=== PATIENT | female | born 1935 | race Caucasian/White ===

== ENCOUNTER 2018-02-23 20:35 | Inpatient (IN) | payer MEDICARE, BC ==
[2018-02-23 21:36] LABS: #Basophils 0.1 thou/uL (0.0-0.2); #Eosinphils 0.1 thou/uL (0.0-0.7); #Lymphocytes 1.3 thou/uL (1.20-3.40); #Monocytes 0.9 thou/uL (0.11-0.59); #Neutrophils 7.1 thou/uL (1.40-6.50); %Eosinophils 0.9 % (0.0-10.0); %Lymphocytes 13.5 % (21.0-51.0); %Monocytes 9.9 % (0.0-10.0); %Neutrophils 74.7 % (42.0-75.0); Hemoglobin 13.2 g/dL (12.0-16.0); Mean Corpuscular HGB CONC 32.6 g/dL (32.0-36.0); Mean Corpuscular Hemoglobin 28.4 pg (27.0-31.0); Mean Corpuscular Volume 87.3 fL (78.0-98.0); Mean Platelet Volume 9.8 fL (7.4-10.4); Platelet Count 168 thou/uL (130-400); RBC Distribution Width 13.4 % (11.5-14.5); Red Blood Cell (RBC) Count 4.66 mill/uL (4.20-5.40); White Blood Cell (WBC) Count 9.5 thou/uL (4.8-10.8)
[2018-02-23 21:51] LABS: ALT (SGPT) 17 U/L (8-55); AST (SGOT) 20 U/L (5-34); Albumin 4.3 g/dL (3.4-4.8); Alkaline Phosphatase 101 U/L (40-150); Anion Gap 14 mmol/L (10-20); BUN (Urea Nitrogen) 13 mg/dL (9.8-20.1); Bilirubin, Total 0.5 mg/dL (0.2-1.2); CK (CPK) 88 U/L (29-168); Calc. Creatinine Clearance 0 mL/min (70-130); Calcium 10.1 mg/dL (7.8-10.44); Carbon Dioxide 29 mmol/L (23-31); Chloride 97 mmol/L (98-107); Estimated GFR-MDRD 73; Globulin 2.9 g/dL (2.4-3.5); Glucose 111 mg/dL (83-110); Potassium 3.9 mmol/L (3.5-5.1); Protein, Total 7.2 g/dL (6.0-8.3); Sodium 136 mmol/L (136-145)
[2018-02-23 21:54] LABS: CKMB 1.5 ng/mL (0-6.6); Troponin I 0.017 ng/mL (< 0.028)
[2018-02-23] MEDS ORDERED: methylPREDNISolone Sod Succ/PF 125 MG/2 ML VIAL ONE (22:37)
[2018-02-23] MEDS ORDERED: cefTRIAXone\\ROCEPHIN 1 GM VIAL ONE (22:37)
[2018-02-24] MEDS ORDERED: Ondansetron ODT 4 MG TAB SL PRN (00:27)
[2018-02-24] MEDS ORDERED: Acetaminophen 325 MG TAB PO PRN ×2 (00:27→00:28)
[2018-02-24] MEDS ORDERED: Ondansetron PF 4 MG/2 ML Vial IVP PRN ×2 (00:27→11:19)
[2018-02-24 01:00] VITALS: BMI 34.4
[2018-02-24] MEDS ORDERED: Azithromycin 500 MG in Sodium Chloride 0.9% 250 ML 250 ML IVPB SCH (03:30)
[2018-02-24] MEDS: Benzonatate 100 MG CAP PO PRN ×2 (04:43→09:07)
[2018-02-24] MEDS ORDERED: Calcium Carbonate 500 MG ChewTAB PO PRN (11:19)
[2018-02-24] MEDS ORDERED: Senokot S 8.6-50 MG TAB PO PRN (11:19)
[2018-02-24] MEDS ORDERED: Ondansetron ODT 4 MG TAB PO PRN (11:19)
[2018-02-24] MEDS ORDERED: Benzonatate 100 MG CAP PO PRN (11:22)
--- NOTE | 2018-02-24 11:44 | HP ---
DATE OF ADMISSION: 02/24/2018 PRIMARY CARE PHYSICIAN: Dr. Douglas Strong. PRIMARY COCOA PRESS OPERATOR: Dr. Villalba. CHIEF COMPLAINT: Shortness of breath and fever. The patient was transferred from Urgent care to the Emergency Room. HISTORY OF PRESENT ILLNESS: Patient is an 82-year-old female with congestive heart failure, hyperten moises and atrial fibrillation who presented to the emergency room with shortness of breath and fever. She was seen at the Urgent Care earlier today and was found to have low oxygen saturation in high 80 s. The influenza was ruled out at the clinic per patient report. Patient has been having shortness of breath along with wheezing as well as low grade fever over the last 2-3 days. She denies any sick contacts. She felt generally weak and fatigued. No significant orthopnea or paroxysmal nocturnal d yspnea or worsening leg swelling reported. She denies any recent travel. She had pneumonia last yea r where she was admitted at [facility]. In the emergency room, she received Rocephin, Solu-Medrol and DuoNebs. Shortness of breath somewhat improved with the above treatment. Patient's oxygen saturation dropped up to 88% while in the emergency room that improved with O2 suppl ementation. She is currently on 2 liters nasal cannula. PAST MEDICAL HISTORY: 1. Chronic atrial fibrillation. 2. Chronic systolic heart failure, followed by Dr. Villalba. 3. Hypertension. 4. Hyperlipidemia. 5. Coronary artery disease, status post stent placement in 2005. 6. History of pneumonia in the past. 7. History of squamous cell carcinoma of the skin. 9. Hypothyroidism. PAST SURGICAL HISTORY: 1. Coronary artery disease. 2. Left leg surgery. 3. Total abdominal hysterectomy. 4. Bladder sling. ALLERGIES: 1. Patient is allergic to LISINOPRIL that causes cough. 2. HYDROCODONE. SOCIAL HISTORY: Patient currently lives at home with her family. She denies any smoking. She makes her own decision with the help of her family. She is FULL CODE. REVIEW OF SYSTEMS: The following complete review of systems was negative, unless otherwise mentioned in the HPI or below: Constitutional: Weight loss or gain, ability to conduct usual activities. Sk in: Rash, itching. Eyes: Double vision, pain. ENT/Mouth: Nose bleeding, neck stiffness, pain, te nderness. Cardiovascular: Palpitations, dyspnea on exertion, orthopnea. Respiratory: Shortness of breath, wheezing, cough, hemoptysis, fever or night sweats. Gastrointestinal: Poor appetite, abdom inal pain, heartburn, nausea, vomiting, constipation, or diarrhea. Genitourinary: Urgency, frequenc y, dysuria, nocturia. Musculoskeletal: Pain, swelling. Neurologic/Psychiatric: Anxiety, depressio n. Allergy/Immunologic: Skin rash, bleeding tendency. FAMILY HISTORY: Positive for hypertension and heart disease. CURRENT HOME MEDICATIONS: Aspirin 81 mg daily, digoxin 125 mcg daily, Cardizem extended release 120 mg daily, Vytorin 10/40 daily, ferrous sulfate 325 mg daily, Lasix 80 mg daily, levothyroxine 88 mcg daily, Xarelto 20 mg daily, Aldactone 50 mg daily, metoprolol succinate 25 mg daily. PHYSICAL EXAMINATION: VITAL SIGNS: In the emergency room showed temperature 99, respirations 22, pulse rate of 78, O2 satu ration of 92%, blood pressure was 135/80. GENERAL: An 82-year-old female in minimal respiratory distress. Intermittent coughing noted. HEENT: Head atraumatic, normocephalic. Sclerae are anicteric. Moist mucous membranes. No signific ant oral lesion appreciated. NECK: Supple, no JVD, no carotid bruit. LUNGS: Showed bibasilar rales with scattered rhonchi and wheezing mainly at left base. HEART: S1, S2 present. Irregularly irregular, 2/6 systolic murmur over the mitral area. ABDOMEN: Soft, nontender, bowel sounds present. EXTREMITIES: No calf tenderness. There is 1+ to 2+ edema which is chronic per patient report. SKIN: Warm and dry. LYMPH NODES: No palpable lymph nodes in the neck. PERIPHERAL VASCULAR: Radial pulses palpable bilaterally. MUSCULOSKELETAL: No joint swelling or tenderness. LABORATORY FINDINGS: CBC showed WBC 9.5, hemoglobin 13.2, hematocrit 40.7, platelet count 168. Chem istries showed sodium 136, potassium 3.9, chloride 97, bicarbonate 29, BUN 13, creatinine 0.76. LFTs in normal range. Troponins were negative. IMAGING: Chest x-ray by my review showed increased bronchopulmonary markings with questionable infil trate at the left base. EKG by my review showed atrial fibrillation, rate controlled. No significan t ST-T wave changes. EKG FINDINGS: EKG by my review showed atrial fibrillation with nonspecific ST-T wave changes. IMPRESSION AND PLAN: 1. Acute hypoxic respiratory failure secondary to community-acquired pneumonia, suspected pneumococc al. Influenza was ruled out at the clinic per patient report. 2. Chronic atrial fibrillation, on anticoagulation. 3. Chronic kidney disease stage 3. 4. Hypertension. 5. Hyperlipidemia. 6. Chronic systolic heart failure, followed by Dr. Deejay rajput. PLAN: Patient will be monitored on the medical floor. We will continue O2 supplementation. We will add nebulizer treatment with Mucinex. We will start her on ceftriaxone with azithromycin. We will resume all of her home medications. Patient will require at least 2 days for stabilization. We will repeat chest x-ray, PA and lateral in a.m. We will check urine antigen for Strep pneumonia and legi onella. Influenza was ruled out per patient report at the Urgent Care. Plan of care was discussed with the patient in detail. She stated understanding.
[2018-02-24 12:04] LABS: Legionella Urinary Ag Negative (Negative); Strep pneumo Urine Ag NEGATIVE (NEGATIVE)
[2018-02-24] MEDS ORDERED: Rivaroxaban 10 MG TAB PO SCH (12:30)
[2018-02-24] MEDS ORDERED: Spironolactone 25 MG TAB PO SCH (12:30)
[2018-02-24] MEDS ORDERED: Furosemide 80 MG TAB PO SCH (12:30)
[2018-02-24] MEDS ORDERED: Digoxin 0.125 MG TAB PO SCH (12:30)
[2018-02-24] MEDS: cefTRIAXone\\ROCEPHIN 2 GM in Sodium Chloride 0.9% 100 ML IVPB SCH (12:35)
[2018-02-24] MEDS: Budesonide 0.5 MG/2 ML NEB INH SCH (19:24)
[2018-02-24] MEDS ORDERED: Simvastatin 40 MG TAB PO SCH (21:00)
[2018-02-24] MEDS ORDERED: Non-Formulary Item 1 EACH (Ezetimibe/Simvastatin [Vytorin] 1 TABLET) PO SCH (21:00)
[2018-02-24] MEDS ORDERED: Ezetimibe 10 MG TAB PO SCH (21:00)
[2018-02-24] MEDS: guaiFENesin ER 600 MG TAB PO SCH (21:13)
[2018-02-24] MEDS ORDERED: cefTRIAXone\\ROCEPHIN 1 GM in Sodium Chloride 0.9% 100 ML IVPB SCH (23:00)
[2018-02-25] MEDS ORDERED: Melatonin 3 MG TAB PO PRN (00:33)
[2018-02-25] MEDS ORDERED: Azithromycin 500 MG in Sodium Chloride 0.9% 250 ML 250 ML IVPB SCH (04:00)
[2018-02-25 04:33] LABS: #Eosinphils 0.1 thou/uL (0.0-0.7); #Lymphocytes 0.8 thou/uL (1.20-3.40); %Basophils 0.3 % (0.0-1.0); %Eosinophils 0.5 % (0.0-10.0); %Lymphocytes 7.7 % (21.0-51.0); %Monocytes 9.4 % (0.0-10.0); %Neutrophils 82.1 % (42.0-75.0); Hemoglobin 12.8 g/dL (12.0-16.0); Mean Corpuscular HGB CONC 33.3 g/dL (32.0-36.0); Mean Corpuscular Hemoglobin 30.1 pg (27.0-31.0); Mean Corpuscular Volume 90.2 fL (78.0-98.0); Mean Platelet Volume 8.8 fL (7.4-10.4); Platelet Count 210 thou/uL (130-400); RBC Distribution Width 13.7 % (11.5-14.5); Red Blood Cell (RBC) Count 4.26 mill/uL (4.20-5.40); White Blood Cell (WBC) Count 10.9 thou/uL (4.8-10.8)
[2018-02-25 04:57] LABS: Anion Gap 13 mmol/L (10-20); BUN (Urea Nitrogen) 21 mg/dL (9.8-20.1); Calc. Creatinine Clearance 80 mL/min (70-130); Calcium 9.6 mg/dL (7.8-10.44); Carbon Dioxide 30 mmol/L (23-31); Chloride 96 mmol/L (98-107); Estimated GFR-MDRD 67; Glucose 170 mg/dL (83-110); Magnesium 2.4 mg/dL (1.6-2.6); Sodium 135 mmol/L (136-145)
[2018-02-25] MEDS ORDERED: Levothyroxine Sodium 88 MCG TAB PO SCH (06:00)
[2018-02-25] MEDS: Budesonide 0.5 MG/2 ML NEB INH SCH (06:49)
[2018-02-25] MEDS ORDERED: Furosemide 40 MG TAB PO SCH (07:30)
[2018-02-25] MEDS ORDERED: Spironolactone 25 MG TAB PO SCH (08:00)
[2018-02-25] MEDS: guaiFENesin ER 600 MG TAB PO SCH (08:08)
[2018-02-25] MEDS ORDERED: Furosemide 80 MG TAB PO SCH (09:00)
[2018-02-25] MEDS ORDERED: Rivaroxaban 10 MG TAB PO SCH ×2 (09:00→21:00)
[2018-02-25] MEDS ORDERED: Digoxin 0.125 MG TAB PO SCH (09:00)
[2018-02-25] MEDS ORDERED: Ferrous Sulfate 325 MG TAB PO SCH (09:00)
[2018-02-25] MEDS ORDERED: Saccharomyces boulardii 250 MG CAP PO SCH (09:00)
[2018-02-25 12:15] VITALS: BP 131/71; TEMP 98
--- NOTE | 2018-02-25 12:23 | RAD ---
PA AND LATERAL CHEST: Comparison: 02-23-18 History: Shortness of breath. FINDINGS: Heart size is enlarged. There are some chronic appearing interstitial lung changes and small bilatera l pleural effusions versus thickening. Overall appearance of the chest is not significantly different than the prior examination. IMPRESSION: Stable exam. POS: NAZANIN
[2018-02-25] MEDS: cefTRIAXone\\ROCEPHIN 2 GM in Sodium Chloride 0.9% 100 ML IVPB SCH (12:50)
--- NOTE | 2018-02-25 15:52 | DIS ---
DATE OF ADMISSION: 02/23/2018 DATE OF DISCHARGE: 02/25/2018 DISCHARGE DISPOSITION: Home. FOLLOWUP: Followup with primary care physician, Dr. Douglas Strong, in one week. The patient was seen and examined on the day of discharge. Denies any new complaints. No chest pain, shortness of breath, or palpitations reported. BRIEF HOSPITAL COURSE: The patient is an 82-year-old female with congestive heart failure, atrial fibrillation, hypertension, hyperlipidemia, and coronary artery disease, presented to the hospital with shortness of breath and fever. She was transferred to the emergency room from an urgent care. She was found to have O2 saturation of 88% at the urgent care clinic along with fever for the last 2 to 3 days. Her x-ray was consistent with suspected pneumonia. She was monitored on the medical floor. She was started on ceftriaxone with azithromycin with good improvement. Blood cultures remained negative. The patient has been afebrile for last 36 hours. Repeat chest x-ray today was negative for acute findings. She appears stable for discharge. She was discharged home on Omnicef 300 mg twice a day for next 5 days. All other home medications were left unchanged. FINAL DIAGNOSES: 1. Acute hypoxic respiratory failure secondary to community acquired pneumonia. 2. Chronic atrial fibrillation, on anticoagulation. 3. Chronic kidney disease, stage 3. 4. Hypertension. 5. Hyperlipidemia. 6. Chronic systolic heart failure. PHYSICAL EXAMINATION: VITAL SIGNS: Vital signs on the day of discharge showed temperature 98.0, pulse rate of 80, respirations of 12, blood pressure 131/71 with O2 saturation of 94% on room air. Plan of care was discussed with the patient in detail, she stated understanding. Job ID: [id number]
== END 2018-02-25 14:49 | disposition home or self-care (01) | DRG 193 ==
LOC: SCSER 20:35 → T4-B 22:25
PROVIDERS: ADMIT Hospitalist; ATTEND Hospitalist
DX: J18.9 Pneumonia, unspecified organism (principal); J96.01 Acute respiratory failure with hypoxia; I13.0 Hypertensive heart and chronic kidney disease with heart failure and stage 1 through stage 4 chronic kidney disease, or unspecified chronic kidney disease; I50.22 Chronic systolic (congestive) heart failure; I48.2 Chronic atrial fibrillation; Z79.01 Long term (current) use of anticoagulants; N18.3 Chronic kidney disease, stage 3 (moderate); E78.5 Hyperlipidemia, unspecified; Z95.5 Presence of coronary angioplasty implant and graft; E03.9 Hypothyroidism, unspecified; Z85.828 Personal history of other malignant neoplasm of skin; Z88.8 Allergy status to other drugs, medicaments and biological substances; Z88.6 Allergy status to analgesic agent
CPT/HCPCS: 36415; 71046; 80048; 80053; 82550; 82553; 83605; 83735; 83880; 84484; 85025; 87040; 87899; 93005; 94640; 94760; 96365; 96375; J0456; J0696; J2930; J7050; J7620; J7626

== ENCOUNTER 2018-02-26 13:13 | Inpatient (IN) | payer MEDICARE, BC ==
[2018-02-26] MEDS ORDERED: ISOVUE-370 76%-LOCM 1 ML ONE (13:19)
--- NOTE | 2018-02-26 15:25 | RAD ---
CHEST PA AND LATERAL: HISTORY: An 82-year-old female with a history of dyspnea, difficulty breathing. COMPARISON: 02/25/2018. FINDINGS: Monitor leads overlie the chest. Bilateral pleural effusions with minimal cardiomegaly and bilateral vascular congestion with some patchy interstitial and alveolar opacity changes in the perihilar lyndon ons, evidence for some developing edema. IMPRESSION: Developing patchy perihilar interstitial and alveolar opacity changes, evidence for bilateral edema. Stable bilateral pleural effusions and vascular congestion and cardiomegaly. POS: NAZANIN
[2018-02-26 15:28] LABS: #Basophils 0.1 thou/uL (0.0-0.2); #Eosinphils 0.1 thou/uL (0.0-0.7); #Monocytes 0.8 thou/uL (0.11-0.59); #Neutrophils 7.8 thou/uL (1.40-6.50); %Basophils 0.8 % (0.0-1.0); %Eosinophils 1.1 % (0.0-10.0); %Lymphocytes 10.3 % (21.0-51.0); %Monocytes 8.3 % (0.0-10.0); %Neutrophils 79.5 % (42.0-75.0); Hemoglobin 14.2 g/dL (12.0-16.0); Mean Corpuscular HGB CONC 32.9 g/dL (32.0-36.0); Mean Corpuscular Hemoglobin 29.8 pg (27.0-31.0); Mean Corpuscular Volume 90.4 fL (78.0-98.0); Mean Platelet Volume 8.3 fL (7.4-10.4); Platelet Count 257 thou/uL (130-400); RBC Distribution Width 13.7 % (11.5-14.5); Red Blood Cell (RBC) Count 4.75 mill/uL (4.20-5.40); White Blood Cell (WBC) Count 9.8 thou/uL (4.8-10.8)
[2018-02-26 15:48] LABS: Anion Gap 10 mmol/L (10-20); BUN (Urea Nitrogen) 16 mg/dL (9.8-20.1); Calc. Creatinine Clearance 0 mL/min (70-130); Calcium 9.7 mg/dL (7.8-10.44); Carbon Dioxide 33 mmol/L (23-31); Chloride 96 mmol/L (98-107); Estimated GFR-MDRD 73; Glucose 103 mg/dL (83-110); Potassium 3.9 mmol/L (3.5-5.1); Sodium 135 mmol/L (136-145)
[2018-02-26 16:02] LABS: CKMB 2.6 ng/mL (0-6.6); Troponin I 0.014 ng/mL (< 0.028)
[2018-02-26] MEDS ORDERED: Albuterol Sulfate 2.5 mg/0.5 ml Neb ONE ×2 (17:30)
--- NOTE | 2018-02-26 17:54 | CT ---
CT ANGIO OF CHEST PERFORMED WITH INTRAVENOUS CONTRAST ENHANCEMENT AND 3D RECONSTRUCTIONS: 02/26/18 HISTORY: Shortness of breath. Patient was recently moved to the hospital for pneumonia and bronchitis but was discharged yesterday. There is a mosaic lung pattern seen with the more ground glass component of this to be slightly more central. There are bilateral pleural effusions which are right larger than left. These are mild. The ground glass opacity can have multiple causes. It could be on the basis of edema change. The thoracic aorta is normal in caliber. There is good pulmonary artery opacification obtained. There is no CT evidence for pulmonary embolus. There are some parenchymal changes in the right middle lobe which have more of an appearance of atelectasis. Coronary artery calcifications are present. The visualized liver parenchyma shows no focal findings. The right and left adrenal glands are normal. IMPRESSION: 1. Mild bilateral pleural effusions, right larger than left with some ground glass opacity in th e lung caceres which suggests possibility of these changes all representing edema. 2. No CT evidence for pulmonary embolus. POS: NAZANIN
[2018-02-26] MEDS ORDERED: methylPREDNISolone Sod Succ/PF 125 MG/2 ML VIAL ONE (20:10)
[2018-02-26] MEDS ORDERED: Ondansetron ODT 4 MG TAB PO PRN (21:22)
[2018-02-26] MEDS ORDERED: Ondansetron PF 4 MG/2 ML Vial IVP PRN (21:22)
[2018-02-26 21:58] VITALS: BMI 29.0
[2018-02-27 04:29] LABS: #Lymphocytes 0.5 thou/uL (1.20-3.40); #Monocytes 0.1 thou/uL (0.11-0.59); #Neutrophils 7.2 thou/uL (1.40-6.50); %Basophils 0.4 % (0.0-1.0); %Eosinophils 0.1 % (0.0-10.0); %Lymphocytes 6.7 % (21.0-51.0); %Monocytes 1.5 % (0.0-10.0); %Neutrophils 91.3 % (42.0-75.0); Hemoglobin 14.1 g/dL (12.0-16.0); Mean Corpuscular HGB CONC 33.4 g/dL (32.0-36.0); Mean Corpuscular Hemoglobin 30.5 pg (27.0-31.0); Mean Corpuscular Volume 91.2 fL (78.0-98.0); Mean Platelet Volume 8.2 fL (7.4-10.4); Platelet Count 251 thou/uL (130-400); RBC Distribution Width 13.6 % (11.5-14.5); Red Blood Cell (RBC) Count 4.64 mill/uL (4.20-5.40); White Blood Cell (WBC) Count 7.9 thou/uL (4.8-10.8)
[2018-02-27] MEDS: Vancomycin HCl 750 MG in Sodium Chloride 0.9% 250 ML 250 ML IVPB SCH ×2 (04:34→17:48)
[2018-02-27 04:41] LABS: Anion Gap 14 mmol/L (10-20); BUN (Urea Nitrogen) 13 mg/dL (9.8-20.1); Calc. Creatinine Clearance 75 mL/min (70-130); Carbon Dioxide 25 mmol/L (23-31); Chloride 99 mmol/L (98-107); Estimated GFR-MDRD 77; Glucose 171 mg/dL (83-110); Potassium 4.1 mmol/L (3.5-5.1); Sodium 134 mmol/L (136-145)
[2018-02-27] MEDS: Furosemide 40 MG/4 ML VIAL SLOW IVP SCH ×2 (06:25→13:55)
[2018-02-27] MEDS: Levothyroxine Sodium 88 MCG TAB PO SCH (06:25)
--- NOTE | 2018-02-27 07:55 | HP ---
CHIEF COMPLAINT: Shortness of breath. HISTORY OF PRESENT ILLNESS: This is an 82-year-old female with past medical history of atrial fibrillation, and hypertension, presenting with shortness of breath. The patient was recently admitted to our hospital with shortness of breath. The patient was diagnosed with acute hypoxic respiratory failure secondary to community-acquired pneumonia and during the hospital stay, the patient was given oxygen. X-ray was ordered, which showed that the patient had pneumonia. The patient was given antibiotics, azithromycin and Rocephin specifically and the patient improved. The patient was then discharged home on Omnicef 300 mg t.i.d. Now, the patient is coming back with shortness of breath. The patient states that when she got home, she was not comfortable. She ambulated to the bathroom and she has significant shortness of breath, so she decided that she has to come back to the hospital because she could not catch her breath. At this point, the patient denies any fever, nausea, vomiting, palpitations, chest pain, abdominal pain, dysuria, hematuria, hematochezia, or melena, but the patient endorses significant shortness of breath with exertion. REVIEW OF SYSTEMS: Positive for shortness of breath, otherwise as documented in the HPI. All other systems were reviewed and are negative. PAST MEDICAL HISTORY: Chronic atrial fibrillation, chronic systolic heart failure, hypertension, hyperlipidemia, coronary artery disease, status post stent placement in 2005, history of pneumonia in the past, history of squamous cell carcinoma of the skin, hypothyroidism. PAST SURGICAL HISTORY: left leg surgery, total abdominal hysterectomy, bladder sling. FAMILY HISTORY: Reviewed and noncontributory to this visit. ALLERGIES: THE PATIENT IS ALLERGIC TO LISINOPRIL AND HYDROCODONE. SOCIAL HISTORY: The patient lives at home with family. The patient denies any smoking history. The patient denies any alcohol use or illicit drug use. CURRENT HOME MEDICATIONS: The patient takes, 1. Aspirin 81 mg. 2. Digoxin 125 mcg. 3. Cardizem 120 mg daily. 4. Vytorin 10/40 daily. 5. Ferrous sulfate 325. 6. Lasix 80 mg. 7. Levothyroxine 88 mcg. 8. Xarelto 20 mg. 9. Aldactone 50 mg daily. 10. Metoprolol succinate 25 mg daily. PHYSICAL EXAMINATION: VITAL SIGNS: Blood pressure is , pulse of 102, respiratory rate of 17, temperature of 98.4, O2 saturation of 91. GENERAL: The patient is alert and oriented x3, not in acute distress. The patient is lying in bed comfortably, does not appear to be in distress. The patient is speaking in full sentences. HEENT: Normocephalic and atraumatic. Pupils are equal, round, and reactive to light. Extraocular movements are intact. No scleral icterus. No conjunctival pallor. NECK: Supple. Trachea is midline. No JVD. No tenderness. LUNGS: The patient has wheezes bilaterally at the anterior lung caceres. CARDIAC: Positive S1 and S2. Regular rate and rhythm. No murmurs, no gallops, no rubs appreciated. ABDOMEN: Soft, nontender, nondistended. No peritoneal signs. Positive bowel sounds in all quadrants. EXTREMITIES: The patient has 5/5 upper extremities strength and good pulses bilaterally of the upper extremities. Lower extremities, the patient has 5/5 lower extremity strength and good pulses bilaterally of the lower extremities. NEURO: Cranial nerves 2 through 12 grossly intact. No neurologic deficits noted. SKIN: Warm, dry, and intact. PSYCH: Normal affect. DIAGNOSTIC STUDIES: EKG shows atrial fibrillation with controlled ventricular response. Radiograph shows small bilateral pleural effusion. No pulmonary embolus. Ground glass appearance mostly in the right middle lobe, most consistent with mild edema, right lobe atelectasis. ASSESSMENT AND PLAN: This is an 82-year-old female, being admitted for shortness of breath, likely due to acute bronchitis. At this point, we will continue the patient on antibiotics. We will give the patient oxygenation. We will continue the patient on current management and we will get case management to evaluate the patient for possible home O2. 1. Atrial fibrillation. We will continue the patient on her home dose of Xarelto and we will continue to monitor the patient closely. We will give the patient some steroids and some DuoNeb treatments. 2. Pleural effusion. At this point, we will give the patient a dose of Lasix to help with effusions and we will continue to monitor the patient. 3. History of hypothyroidism. We will continue the patient on home medications. 4. Hypertension. We will continue the patient on home medications. 5. Deep venous thrombosis and gastrointestinal prophylaxis. Job ID: [id number]
[2018-02-27] MEDS: Digoxin 0.125 MG TAB PO SCH (08:20)
[2018-02-27] MEDS: guaiFENesin ER 600 MG TAB PO SCH ×2 (08:22→21:07)
[2018-02-27] MEDS: Saccharomyces boulardii 250 MG CAP PO SCH (08:22)
[2018-02-27] MEDS: Rivaroxaban 10 MG TAB PO SCH (08:22)
[2018-02-27] MEDS: Famotidine 20 MG TAB PO SCH ×2 (08:22→21:04)
[2018-02-27] MEDS: Ferrous Sulfate 325 MG TAB PO SCH (08:22)
[2018-02-27] MEDS: Spironolactone 25 MG TAB PO SCH (08:23)
[2018-02-27] MEDS: Famotidine/PF 20 mg/2ml Vial SLOW IVP SCH ×2 (08:23→21:05)
--- NOTE | 2018-02-27 17:59 | CON ---
DATE OF CONSULTATION: 02/27/2018 CONSULTING PHYSICIAN: Dr. Perdue . REASON FOR CONSULTATION: Pneumonia. HISTORY OF PRESENT ILLNESS: The patient is an 82-year-old female, who had been in the hospital earlier this week with bronchopneumonia. She stayed for 2-1/2 days and was discharged home. [place] She felt very congested and came back to the hospital and was subsequently readmitted. She has had no fevers or chills, but has tightness in her chest. She is coughing up mucoid secretions. PAST MEDICAL HISTORY: 1. Pneumonia. 2. Chronic atrial fibrillation. 3. Chronic systolic heart failure. 4. Hypertension. 5. Hyperlipidemia. 6. Coronary artery disease. 7. Skin cancer. 8. Hypothyroidism. PAST SURGICAL HISTORY: 1. Total abdominal hysterectomy. 2. Bladder sling. 3. Cardiac stent placement. FAMILY HISTORY: Unremarkable. ALLERGIES: LISINOPRIL AND HYDROCODONE. SOCIAL HISTORY: Never smoked. Does not consume alcohol. Does not use illicit drug. MEDICATIONS: Prior to admission, 1. Aspirin. 2. Digoxin. 3. Cardizem. 4. Vytorin. 5. Iron sulfate. 6. Lasix. 7. Levothyroxine. 8. Xarelto. 9. Aldactone. 10. Metoprolol. 11. She was also on antibiotics while she was in the hospital previously, and according to the discharge summary, she was sent home on Omnicef 300 mg twice a day. REVIEW OF SYSTEMS: A 12-point review of systems otherwise negative. PHYSICAL EXAMINATION: VITAL SIGNS: Temperature 98.2, pulse 85, blood pressure 125/62, and O2 stat 94% on 2 L. GENERAL: She is awake, pleasant, talkative, and in no distress. HEENT: Pupils react. Sclerae are anicteric. Oropharynx clear. NECK: Without adenopathy or JVD. LUNGS: Coarse rhonchi bilaterally. CARDIAC: S1-S2 regular without murmur. ABDOMEN: Soft, nontender, and nondistended. EXTREMITIES: No clubbing, cyanosis, or edema. LABORATORY DATA: White blood cell count 7.9, hematocrit 42.3, and platelet count 251. Sodium 134, potassium 4.1, chloride 99, CO2 of 25, BUN 13, creatinine 0.7, and glucose 171. IMAGING DATA: CT of the chest showed some pulmonary edema and some subtle bilateral small effusions. ASSESSMENT: 1. Pneumonia with asthmatic bronchitis symptoms. 2. Probably some degree of systolic heart failure. RECOMMENDATION: Recommend treating with antibiotics, steroids, and nebulization treatment as you are doing. She will likely improve, but I am not sure about the timeline. She may benefit from rehab prior to going back home. Job ID: [id number]
--- NOTE | 2018-02-27 20:39 | PDOC.PN ---
- Subjective Encounter Start Date: 02/27/18 Encounter Start Time: 10:15 Patient seen and examined for resp failure. SOB is improving. Some cough +. No new complaints. No overnight events - Objective Resuscitation Status - Order Detail: 02/26/18 21:22 Resuscitation Status Routine Resuscitation Status: FULL: Full Resuscitation MAR Reviewed: Yes Vital Signs & Weight: Vital Signs (12 hours) Temp Pulse Resp BP BP Pulse Ox Pulse Ox 02/27/18 18:18 89 16 12 L 02/27/18 16:00 97.8 F 89 18 122/70 92 L 02/27/18 14:41 80 14 02/27/18 13:54 93 L 02/27/18 11:48 97.6 F 91 18 133/74 93 L 02/27/18 11:05 84 14 Pulse Ox 02/27/18 18:18 02/27/18 16:00 02/27/18 14:41 02/27/18 13:54 93 L 02/27/18 11:48 02/27/18 11:05 Weight Weight 174 lb 2.643 oz I&O: 02/26/18 02/27/18 02/28/18 06:59 06:59 06:59 Intake Total 800 1450 Balance 800 1450 Result Diagrams: 02/27/18 04:11 02/28/18 04:05 Radiology Reviewed by me: Yes (CT chest - negative) Phys Exam - Physical Examination Constitutional: NAD Respiratory: no rales, wheezing present Cardiovascular: RRR, no rub Gastrointestinal: soft, non-tender, positive bowel sounds Musculoskeletal: no edema Dx/Plan - Plan 1. Acute hypoxic respiratory failure secondary to CA Pneumonia/Asthmatic bronchitis 2. Chronic atrial fibrillation, on anticoagulation. 3. Chronic kidney disease, stage 3. 4. Hypertension. 5. Hyperlipidemia. 6. Chronic systolic heart failure - ACC stage C PLAN: Cont current Atbx Nebs changed to Q4h Cont current meds as below Cont O2 supp Review of Systems - Review of Systems Respiratory: Cough, Dry, SOB with Excertion. negative: Shortness of Breath, Hemoptysis, Pleuritic Pain, Sputum, Wheezing Cardiovascular: negative: chest pain, palpitations, orthopnea, paroxysmal nocturnal dyspnea, edema, light headedness, other Gastrointestinal: negative: Nausea, Vomiting, Abdominal Pain, Diarrhea, Constipation, Melena, Hematochezia, Other - Medications/Allergies Allergies/Adverse Reactions: Allergies Allergy/AdvReac Type Severity Reaction Status Date / Time acetaminophen [From [place]] Allergy Verified 02/25/18 04:34 hydrocodone [From [place]] Allergy Nausea Verified 02/26/18 21:54 Medications: Current Medications Albuterol/Ipratropium (Duoneb) 3 ml NEB [id number] [facility] Last Admin: 02/27/18 18:18 Dose: 3 ml Aspirin (Aspirin Chewable) 81 mg PO DAILY [facility] Last Admin: 02/27/18 08:20 Dose: 81 mg Digoxin (Lanoxin) 0.125 mg PO DAILY [facility] Last Admin: 02/27/18 08:20 Dose: 0.125 mg Diltiazem HCl (Cardizem Cd) 120 mg PO DAILY [facility] Last Admin: 02/27/18 08:24 Dose: 120 mg Ezetimibe (Zetia) 10 mg PO HS [facility] Famotidine (Pepcid) 20 mg SLOW IVP Q12HR [facility] Last Admin: 02/27/18 08:23 Dose: Not Given Famotidine (Pepcid) 20 mg PO BID [facility] Last Admin: 02/27/18 08:22 Dose: 20 mg Ferrous Sulfate (Feosol) 325 mg PO DAILY [facility] Last Admin: 02/27/18 08:22 Dose: 325 mg Furosemide (Lasix) 40 mg SLOW IVP 0600,1400 [facility] Last Admin: 02/27/18 13:55 Dose: 40 mg Guaifenesin (Mucinex) 600 mg PO Q12HR [facility] Last Admin: 02/27/18 08:22 Dose: 600 mg Levofloxacin 750 mg/ Device 150 mls @ 100 mls/hr IVPB Q24HR [facility] Last Admin: 02/26/18 23:44 Dose: 150 mls Vancomycin HCl 750 mg/ Sodium (Chloride) 250 mls @ 250 mls/hr IVPB 0500,1700 [facility] Last Admin: 02/27/18 17:48 Dose: 250 mls Levothyroxine Sodium (Synthroid) 88 mcg PO 0600 [facility] Last Admin: 02/27/18 06:25 Dose: 88 mcg Methylprednisolone Sodium Succinate (Solu-Medrol) 20 mg IVP Q8HR [facility] Last Admin: 02/27/18 13:56 Dose: 20 mg Metoprolol Succinate (Toprol Xl) 25 mg PO DAILY [facility] Last Admin: 02/27/18 08:23 Dose: 25 mg Miscellaneous Medication (Pharmacy To Dose) 0 each IVPB PRN PRN PRN Reason: VANC/LEVAQUIN Pharmacy to Dose Ondansetron HCl (Zofran Odt) 4 mg PO Q6H PRN PRN Reason: Nausea/Vomiting Ondansetron HCl (Zofran) 4 mg IVP Q6H PRN PRN Reason: Nausea/Vomiting Rivaroxaban (Xarelto) 20 mg PO DAILY [facility] Last Admin: 02/27/18 08:22 Dose: 20 mg Saccharomyces Boulardii (Florastor) 250 mg PO DAILY [facility] Last Admin: 02/27/18 08:22 Dose: 250 mg Simvastatin (Zocor) 40 mg PO HS [facility] Sodium Chloride (Flush - Normal Saline) 10 ml IVF Q12HR [facility] Last Admin: 02/27/18 08:22 Dose: 10 ml Sodium Chloride (Flush - Normal Saline) 10 ml IVF PRN PRN PRN Reason: Saline Flush Spironolactone (Aldactone) 50 mg PO DAILY [facility] Last Admin: 02/27/18 08:23 Dose: 50 mg
[2018-02-27] MEDS ORDERED: Non-Formulary Item 1 EACH (Ezetimibe/Simvastatin [Vytorin] 1 TABLET) PO SCH (21:00)
[2018-02-27] MEDS: Ezetimibe 10 MG TAB PO SCH (21:05)
[2018-02-27] MEDS: Simvastatin 40 MG TAB PO SCH (21:07)
[2018-02-28 05:25] LABS: Anion Gap 13 mmol/L (10-20); BUN (Urea Nitrogen) 18 mg/dL (9.8-20.1); Calc. Creatinine Clearance 74 mL/min (70-130); Calcium 9.6 mg/dL (7.8-10.44); Carbon Dioxide 27 mmol/L (23-31); Chloride 99 mmol/L (98-107); Estimated GFR-MDRD 75; Glucose 147 mg/dL (83-110); Magnesium 2.5 mg/dL (1.6-2.6); Potassium 4.2 mmol/L (3.5-5.1); Sodium 135 mmol/L (136-145); Vancomycin, Trough 8.2 ug/mL
[2018-02-28] MEDS: Vancomycin HCl 750 MG in Sodium Chloride 0.9% 250 ML 250 ML IVPB SCH (05:48)
[2018-02-28] MEDS ORDERED: Vancomycin HCl 1 GM in Premix Bag 1 BAG IVPB SCH (06:00)
[2018-02-28] MEDS: Levothyroxine Sodium 88 MCG TAB PO SCH (06:01)
[2018-02-28] MEDS: Furosemide 40 MG/4 ML VIAL SLOW IVP SCH ×2 (06:01→14:36)
[2018-02-28] MEDS: Famotidine 20 MG TAB PO SCH ×2 (08:28→20:49)
[2018-02-28] MEDS: Saccharomyces boulardii 250 MG CAP PO SCH (08:28)
[2018-02-28] MEDS: Spironolactone 25 MG TAB PO SCH (08:28)
[2018-02-28] MEDS: Ferrous Sulfate 325 MG TAB PO SCH (08:28)
[2018-02-28] MEDS: Digoxin 0.125 MG TAB PO SCH (08:28)
[2018-02-28] MEDS: guaiFENesin ER 600 MG TAB PO SCH ×2 (08:33→20:49)
[2018-02-28] MEDS: Famotidine/PF 20 mg/2ml Vial SLOW IVP SCH ×2 (08:33→20:51)
[2018-02-28] MEDS: Rivaroxaban 10 MG TAB PO SCH (08:37)
--- NOTE | 2018-02-28 13:59 | PDOC.PN ---
- Subjective Encounter Start Date: 02/28/18 Encounter Start Time: 10:00 Patient seen and examined for resp failure. SOB improving. No new complaints. No overnight events - Objective Resuscitation Status - Order Detail: 02/26/18 21:22 Resuscitation Status Routine Resuscitation Status: FULL: Full Resuscitation MAR Reviewed: Yes Vital Signs & Weight: Vital Signs (12 hours) Temp Pulse Resp BP BP BP Pulse Ox 02/28/18 12:58 98.9 F 89 20 126/66 97 02/28/18 10:41 91 18 91 L 02/28/18 08:39 98.2 F 88 20 137/71 02/28/18 08:32 88 137/71 02/28/18 08:28 88 02/28/18 07:19 88 18 95 Weight Weight 174 lb 2.643 oz I&O: 02/27/18 02/28/18 03/01/18 06:59 06:59 06:59 Intake Total 800 1450 Balance 800 1450 Result Diagrams: 02/27/18 04:11 02/28/18 04:05 Phys Exam - Physical Examination Constitutional: NAD Respiratory: no wheezing, no rhonchi Cardiovascular: RRR Gastrointestinal: soft, non-tender, positive bowel sounds Neurological: moves all 4 limbs Dx/Plan - Plan 1. Acute hypoxic respiratory failure secondary to [place] Pneumonia/Asthmatic bronchitis 2. Chronic atrial fibrillation, on anticoagulation. 3. Chronic kidney disease, stage 3. 4. Hypertension. 5. Hyperlipidemia. 6. Chronic systolic heart failure PLAN: DC Vancomycin Cont Atbx and Nebs On RA Cont current meds as below Pulmonary following Review of Systems - Review of Systems Respiratory: negative: Cough, Dry, Shortness of Breath, Hemoptysis, SOB with Excertion, Pleuritic Pain, Sputum, Wheezing Cardiovascular: negative: chest pain, palpitations, orthopnea, paroxysmal nocturnal dyspnea, edema, light headedness, other Gastrointestinal: negative: Nausea, Vomiting, Abdominal Pain, Diarrhea, Constipation, Melena, Hematochezia, Other - Medications/Allergies Allergies/Adverse Reactions: Allergies Allergy/AdvReac Type Severity Reaction Status Date / Time acetaminophen [From [place]] Allergy Verified 02/25/18 04:34 hydrocodone [From [place]] Allergy Nausea Verified 02/26/18 21:54 Medications: Current Medications Albuterol/Ipratropium (Duoneb) 3 ml NEB [id number] [facility] Last Admin: 02/28/18 10:41 Dose: 3 ml Aspirin (Aspirin Chewable) 81 mg PO DAILY [facility] Last Admin: 02/28/18 08:27 Dose: 81 mg Digoxin (Lanoxin) 0.125 mg PO DAILY [facility] Last Admin: 02/28/18 08:28 Dose: 0.125 mg Diltiazem HCl (Cardizem Cd) 120 mg PO DAILY [facility] Last Admin: 02/28/18 08:32 Dose: 120 mg Ezetimibe (Zetia) 10 mg PO HS [facility] Last Admin: 02/27/18 21:05 Dose: 10 mg Famotidine (Pepcid) 20 mg SLOW IVP Q12HR [facility] Last Admin: 02/28/18 08:33 Dose: Not Given Famotidine (Pepcid) 20 mg PO BID [facility] Last Admin: 02/28/18 08:28 Dose: 20 mg Ferrous Sulfate (Feosol) 325 mg PO DAILY [facility] Last Admin: 02/28/18 08:28 Dose: 325 mg Furosemide (Lasix) 40 mg SLOW IVP 0600,1400 [facility] Last Admin: 02/28/18 06:01 Dose: 40 mg Guaifenesin (Mucinex) 600 mg PO Q12HR [facility] Last Admin: 02/28/18 08:33 Dose: 600 mg Levofloxacin 750 mg/ Device 150 mls @ 100 mls/hr IVPB Q24HR [facility] Last Admin: 02/27/18 22:15 Dose: 150 mls Vancomycin HCl 1 gm/ Device 200 mls @ 200 mls/hr IVPB 0600,1800 [facility] Last Admin: 02/28/18 06:00 Dose: 200 mls Levothyroxine Sodium (Synthroid) 88 mcg PO 0600 [facility] Last Admin: 02/28/18 06:01 Dose: 88 mcg Methylprednisolone Sodium Succinate (Solu-Medrol) 20 mg IVP Q8HR [facility] Last Admin: 02/28/18 06:02 Dose: 20 mg Metoprolol Succinate (Toprol Xl) 25 mg PO DAILY [facility] Last Admin: 02/28/18 08:28 Dose: 25 mg Miscellaneous Medication (Pharmacy To Dose) 0 each IVPB PRN PRN PRN Reason: VANC/LEVAQUIN Pharmacy to Dose Ondansetron HCl (Zofran Odt) 4 mg PO Q6H PRN PRN Reason: Nausea/Vomiting Ondansetron HCl (Zofran) 4 mg IVP Q6H PRN PRN Reason: Nausea/Vomiting Rivaroxaban (Xarelto) 20 mg PO DAILY [facility] Last Admin: 02/28/18 08:37 Dose: 20 mg Saccharomyces Boulardii (Florastor) 250 mg PO DAILY [facility] Last Admin: 02/28/18 08:28 Dose: 250 mg Simvastatin (Zocor) 40 mg PO HS [facility] Last Admin: 02/27/18 21:07 Dose: 40 mg Sodium Chloride (Flush - Normal Saline) 10 ml IVF Q12HR [facility] Last Admin: 02/28/18 08:33 Dose: 10 ml Sodium Chloride (Flush - Normal Saline) 10 ml IVF PRN PRN PRN Reason: Saline Flush Spironolactone (Aldactone) 50 mg PO DAILY [facility] Last Admin: 02/28/18 08:28 Dose: 50 mg
--- NOTE | 2018-02-28 16:06 | PRG ---
DATE OF SERVICE: 02/28/2018 SUBJECTIVE: The patient is better, had no acute complaints. OBJECTIVE: VITAL SIGNS: On exam, temperature 98.9, pulse 78, respirations 18, O2 saturation 98% on room air, blood pressure 126/66. HEENT: Unremarkable. NECK: No JVD. CHEST: Clear. No wheezing today. CARDIAC: S1, S2. Regular. ABDOMEN: Soft. EXTREMITIES: No edema. ASSESSMENT: Asthmatic bronchitis, which is better. RECOMMENDATION: Continue antibiotics. 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 She may need some type of rehab prior to discharge home. Job ID: [id number]
[2018-02-28] MEDS: Ezetimibe 10 MG TAB PO SCH (20:49)
[2018-02-28] MEDS: Simvastatin 40 MG TAB PO SCH (20:50)
[2018-03-01] MEDS: Levothyroxine Sodium 88 MCG TAB PO SCH (05:50)
[2018-03-01] MEDS: Furosemide 40 MG/4 ML VIAL SLOW IVP SCH (05:50)
[2018-03-01 05:54] LABS: Anion Gap 13 mmol/L (10-20); BUN (Urea Nitrogen) 22 mg/dL (9.8-20.1); Calc. Creatinine Clearance 90 mL/min (70-130); Calcium 9.4 mg/dL (7.8-10.44); Carbon Dioxide 30 mmol/L (23-31); Chloride 97 mmol/L (98-107); Estimated GFR-MDRD 74; Glucose 158 mg/dL (83-110); Magnesium 2.2 mg/dL (1.6-2.6); Potassium 4.2 mmol/L (3.5-5.1); Sodium 136 mmol/L (136-145)
[2018-03-01] MEDS: Ferrous Sulfate 325 MG TAB PO SCH (08:29)
[2018-03-01] MEDS: Famotidine 20 MG TAB PO SCH ×2 (08:29→21:12)
[2018-03-01] MEDS: Saccharomyces boulardii 250 MG CAP PO SCH (08:29)
[2018-03-01] MEDS: Rivaroxaban 10 MG TAB PO SCH (08:29)
[2018-03-01] MEDS: Spironolactone 25 MG TAB PO SCH (08:29)
[2018-03-01] MEDS: guaiFENesin ER 600 MG TAB PO SCH ×2 (08:30→21:12)
[2018-03-01] MEDS: Digoxin 0.125 MG TAB PO SCH (08:30)
[2018-03-01] MEDS: Famotidine/PF 20 mg/2ml Vial SLOW IVP SCH (08:31)
[2018-03-01] MEDS: predniSONE 20 MG TAB PO SCH (17:50)
--- NOTE | 2018-03-01 18:49 | PDOC.PN ---
- Subjective Encounter Start Date: 03/01/18 Encounter Start Time: 14:00 Patient seen and examined for Resp failure. SOB improving. No new complaints. No overnight events - Objective Resuscitation Status - Order Detail: 02/26/18 21:22 Resuscitation Status Routine Resuscitation Status: FULL: Full Resuscitation MAR Reviewed: Yes Vital Signs & Weight: Vital Signs (12 hours) Temp Pulse Resp BP BP BP Pulse Ox 03/01/18 16:00 98.1 F 80 20 138/74 98 03/01/18 15:51 75 21 H 122/65 88 L 03/01/18 14:05 88 18 98 03/01/18 12:00 97.9 F 89 20 136/74 96 03/01/18 11:12 85 20 98 03/01/18 08:35 94 L 03/01/18 08:32 97.5 F L 91 20 126/63 94 L 03/01/18 08:30 91 03/01/18 08:29 91 126/63 Weight Weight 213 lb 10.047 oz I&O: 02/28/18 03/01/18 03/02/18 06:59 06:59 06:59 Intake Total 1450 800 Balance 1450 800 Result Diagrams: 02/27/18 04:11 03/01/18 04:39 Phys Exam - Physical Examination Constitutional: NAD Respiratory: no wheezing, no rhonchi Scat rales at bases Cardiovascular: RRR, no rub Gastrointestinal: soft, non-tender, positive bowel sounds Neurological: moves all 4 limbs Dx/Plan - Plan 1. Acute hypoxic respiratory failure secondary to [place] Pneumonia/Asthmatic bronchitis 2. Chronic atrial fibrillation, on anticoagulation. 3. Chronic kidney disease, stage 3. 4. Hypertension. 5. Hyperlipidemia. 6. Chronic systolic heart failure PLAN: Cont Atbx, Steroid and Nebs - change to PO Home O2 assessment in AM Cont current meds as below Rehab/SNF discussed with patient - Patient will d/w her family Review of Systems - Review of Systems Cardiovascular: negative: chest pain, palpitations, orthopnea, paroxysmal nocturnal dyspnea, edema, light headedness, other Gastrointestinal: negative: Nausea, Vomiting, Abdominal Pain, Diarrhea, Constipation, Melena, Hematochezia, Other - Medications/Allergies Allergies/Adverse Reactions: Allergies Allergy/AdvReac Type Severity Reaction Status Date / Time acetaminophen [From [place]] Allergy Verified 02/25/18 04:34 hydrocodone [From [place]] Allergy Nausea Verified 02/26/18 21:54 Medications: Current Medications Albuterol/Ipratropium (Duoneb) 3 ml NEB [id number] Last Admin: 03/01/18 14:05 Dose: 3 ml Aspirin (Aspirin Chewable) 81 mg PO DAILY [facility] Last Admin: 03/01/18 08:26 Dose: 81 mg Digoxin (Lanoxin) 0.125 mg PO DAILY [facility] Last Admin: 03/01/18 08:30 Dose: 0.125 mg Diltiazem HCl (Cardizem Cd) 120 mg PO DAILY [facility] Last Admin: 03/01/18 08:29 Dose: 120 mg Ezetimibe (Zetia) 10 mg PO HS [facility] Last Admin: 02/28/18 20:49 Dose: 10 mg Famotidine (Pepcid) 20 mg SLOW IVP Q12HR [facility] Last Admin: 03/01/18 08:31 Dose: Not Given Famotidine (Pepcid) 20 mg PO BID [facility] Last Admin: 03/01/18 08:29 Dose: 20 mg Ferrous Sulfate (Feosol) 325 mg PO DAILY [facility] Last Admin: 03/01/18 08:29 Dose: 325 mg Furosemide (Lasix) 80 mg PO DAILY[facility] Guaifenesin (Mucinex) 600 mg PO Q12HR [facility] Last Admin: 03/01/18 08:30 Dose: 600 mg Levofloxacin (Levaquin) 500 mg PO 0600 [facility] Levothyroxine Sodium (Synthroid) 88 mcg PO 0600 [facility] Last Admin: 03/01/18 05:50 Dose: 88 mcg Metoprolol Succinate (Toprol Xl) 25 mg PO DAILY [facility] Last Admin: 03/01/18 08:29 Dose: 25 mg Miscellaneous Medication (Pharmacy To Dose) 0 each IVPB PRN PRN PRN Reason: VANC/[place]VA[place] Pharmacy to Dose Ondansetron HCl (Zofran Odt) 4 mg PO Q6H PRN PRN Reason: Nausea/Vomiting Ondansetron HCl (Zofran) 4 mg IVP Q6H PRN PRN Reason: Nausea/Vomiting Prednisone (Prednisone) 20 mg PO BID[facility] Rivaroxaban (Xarelto) 20 mg PO DAILY [facility] Last Admin: 03/01/18 08:29 Dose: 20 mg Saccharomyces Boulardii (Florastor) 250 mg PO DAILY [facility] Last Admin: 03/01/18 08:29 Dose: 250 mg Simvastatin (Zocor) 40 mg PO HS [facility] Last Admin: 02/28/18 20:50 Dose: 40 mg Sodium Chloride (Flush - Normal Saline) 10 ml IVF Q12HR [facility] Last Admin: 03/01/18 08:30 Dose: 10 ml Sodium Chloride (Flush - Normal Saline) 10 ml IVF PRN PRN PRN Reason: Saline Flush Spironolactone (Aldactone) 50 mg PO DAILY [facility] Last Admin: 03/01/18 08:29 Dose: 50 mg
[2018-03-01] MEDS: Ezetimibe 10 MG TAB PO SCH (21:12)
[2018-03-01] MEDS: Simvastatin 40 MG TAB PO SCH (21:12)
[2018-03-02] MEDS ORDERED: Melatonin 3 MG TAB PO PRN (00:44)
[2018-03-02] MEDS ORDERED: Melatonin 3 MG TAB PO SCH (00:45)
[2018-03-02] MEDS ORDERED: Cepastat Lozenges 1 LOZ PO PRN (00:45)
[2018-03-02 05:53] LABS: Anion Gap 15 mmol/L (10-20); BUN (Urea Nitrogen) 25 mg/dL (9.8-20.1); Calc. Creatinine Clearance 94 mL/min (70-130); Calcium 9.6 mg/dL (7.8-10.44); Carbon Dioxide 25 mmol/L (23-31); Chloride 98 mmol/L (98-107); Estimated GFR-MDRD 78; Glucose 150 mg/dL (83-110); Magnesium 2.5 mg/dL (1.6-2.6); Potassium 4.6 mmol/L (3.5-5.1); Sodium 133 mmol/L (136-145)
[2018-03-02] MEDS: Levothyroxine Sodium 88 MCG TAB PO SCH (06:05)
[2018-03-02] MEDS ORDERED: Furosemide 80 MG TAB PO SCH (07:30)
--- NOTE | 2018-03-02 07:49 | PRG ---
DATE OF SERVICE: 03/01/2018 SUBJECTIVE: Ms. Hendricks is doing better and wants to go home. OBJECTIVE: VITAL SIGNS: Temperature is 97.5, pulse 91, respirations are 20, O2 saturation 94% on 2 L, and blood pressure 126/63. HEENT: Unremarkable. NECK: No JVD. CHEST: Clear without wheezing or rhonchi. CARDIAC: S1 and S2, regular. ABDOMEN: Soft. EXTREMITIES: No edema. ASSESSMENT: Asthmatic bronchitis - better. PLAN: The patient looks stable for discharge on oral antibiotics and a tapered dose of steroids. Pulmonary will sign off. Please re-call, if further concerns occur. Job ID: [id number]
[2018-03-02] MEDS: predniSONE 20 MG TAB PO SCH (07:52)
[2018-03-02] MEDS: Saccharomyces boulardii 250 MG CAP PO SCH (07:55)
[2018-03-02] MEDS: Spironolactone 25 MG TAB PO SCH (07:55)
[2018-03-02] MEDS: Digoxin 0.125 MG TAB PO SCH (07:56)
[2018-03-02] MEDS: Famotidine 20 MG TAB PO SCH (07:56)
[2018-03-02] MEDS: Rivaroxaban 10 MG TAB PO SCH (07:56)
[2018-03-02] MEDS: Ferrous Sulfate 325 MG TAB PO SCH (07:56)
[2018-03-02] MEDS: guaiFENesin ER 600 MG TAB PO SCH (07:57)
--- NOTE | 2018-03-02 11:14 | PRG ---
DATE OF SERVICE: 03/02/2018 SUBJECTIVE: Ms. Hendricks is doing well. I am not quite sure why she was not discharged yesterday. OBJECTIVE: VITAL SIGNS: On exam, her temperature is 97.7, pulse 94, respirations 20, O2 sat is 94% on room air, and blood pressure 125/78. HEENT: Unremarkable. NECK: No JVD. LUNGS: Clear. CARDIAC: S1, S2. Regular. ABDOMEN: Soft. EXTREMITIES: No edema. LABORATORY DATA: Sodium 133, potassium 4.6, chloride 98, CO2 of 25, BUN 25, creatinine 0.7, and glucose 150. ASSESSMENT: Asthmatic bronchitis, which is better. PLAN: She is stable to go home on antibiotics and tapered steroids. Again, Pulmonary will sign off. Job ID: [id number]
[2018-03-02 12:50] VITALS: BP 119/74; TEMP 98
--- NOTE | 2018-03-03 19:53 | DIS ---
DATE OF ADMISSION: 02/26/2018 DATE OF DISCHARGE: 03/02/2018 DISCHARGE DISPOSITION: Home. FOLLOWUP: 1. Follow up with primary care physician, Dr. Douglas Strong, in 1 week. 2. Follow up with Dr. Escobedo in 2 to 4 weeks. ALLERGIES: THE PATIENT IS ALLERGIC TO [place]. THE PATIENT WAS SEEN AND EXAMINED ON THE DAY OF DISCHARGE. DENIES ANY NEW COMPLAINTS. NO CHEST PAIN, SHORTNESS OF BREATH, OR PALPITATIONS REPORTED. BRIEF HOSPITAL COURSE: The patient is an 82-year-old female with chronic atrial fibrillation on anticoagulation and hypertension, presented to the hospital with shortness of breath. Please refer to the history and physical dated February 26, 2018 for further details. The patient was admitted to the hospital with a diagnosis of acute hypoxic respiratory failure secondary to asthmatic bronchitis/community-acquired pneumonia. CT angiogram of the chest was negative for significant infiltrate. It showed some ground-glass opacities in the lung caceres along with mild bilateral pleural effusions. She showed good improvement with antibiotic and steroid. Diuretics were continued. She was also evaluated by Pulmonary, Dr. Escobedo. BNP on admission was 99. Troponins were negative. She was placed on broad-spectrum antibiotics initially, that was later changed to p.o. FINAL DIAGNOSES: 1. Acute hypoxic respiratory failure secondary to community-acquired pneumonia and asthmatic bronchitis. Her oxygen on the day of discharge is 94% on room air. 2. Chronic atrial fibrillation, on anticoagulation. 3. Chronic kidney disease, stage 3. 4. Hypertension. 5. Hyperlipidemia. 6. Chronic systolic heart failure, [employer] stage C. PLAN: Plan of care was discussed with the patient in detail. She stated understanding. Job ID: [id number]
== END 2018-03-02 15:25 | disposition home or self-care (01) | DRG 193 ==
LOC: ERS 13:13 → T4-A 21:20
PROVIDERS: ADMIT Family Medicine; ATTEND Family Medicine
DX: J18.9 Pneumonia, unspecified organism (principal); J96.01 Acute respiratory failure with hypoxia; I50.22 Chronic systolic (congestive) heart failure; J90 Pleural effusion, not elsewhere classified; J20.9 Acute bronchitis, unspecified; I10 Essential (primary) hypertension; E78.5 Hyperlipidemia, unspecified; I25.10 Atherosclerotic heart disease of native coronary artery without angina pectoris; Z85.828 Personal history of other malignant neoplasm of skin; Z87.01 Personal history of pneumonia (recurrent); I48.2 Chronic atrial fibrillation; Z95.5 Presence of coronary angioplasty implant and graft; E03.9 Hypothyroidism, unspecified; Z88.8 Allergy status to other drugs, medicaments and biological substances; Z88.5 Allergy status to narcotic agent; Z79.899 Other long term (current) drug therapy; Z79.82 Long term (current) use of aspirin; Z79.01 Long term (current) use of anticoagulants; N18.3 Chronic kidney disease, stage 3 (moderate)
CPT/HCPCS: 36415; 71046; 71275; 80048; 80202; 82553; 83735; 83880; 84484; 85025; 85379; 94640; 96361; 96374; 99213; G0463; G8978-GP-CI; G8979-GP-CI; G8980-GP-CI; J1940; J1956; J2920; J2930; J3370; J7050; J7506; J7611; J7620; S0028

== ENCOUNTER 2018-11-01 19:38 | Emergency (ER) | payer MEDICARE, BC ==
[2018-11-01 20:06] LABS: Bilirubin Negative (Negative); Blood, Urine Large (Negative); Clarity Cloudy (Clear); Glucose, Urine (Dipstick) 250 mg/dL (Negative); Leukocyte Trace (Negative); Nitrite Negative (Negative); Protein, Urine (Dipstick) Trace mg/dL (Neg-Trace); Urobilinogen 0.2 mg/dL (Less than 2)
[2018-11-01 20:07] LABS: RBC/HPF Greater than 50 HPF (0-3)
[2018-11-01 20:08] LABS: Bacteria/HPF Rare-Few HPF (None Seen); Squamous Epithelial 0-3 HPF (0-3)
[2018-11-01 20:46] LABS: #Basophils 0.1 thou/uL (0.0-0.2); #Eosinphils 0.2 thou/uL (0.0-0.7); #Lymphocytes 1.2 thou/uL (1.20-3.40); #Monocytes 0.7 thou/uL (0.11-0.59); #Neutrophils 8.9 thou/uL (1.40-6.50); %Basophils 1.3 % (0.0-1.0); %Eosinophils 1.4 % (0.0-10.0); %Lymphocytes 11.1 % (21.0-51.0); %Monocytes 6.4 % (0.0-10.0); %Neutrophils 79.9 % (42.0-75.0); Hemoglobin 14.3 g/dL (12.0-16.0); Mean Corpuscular HGB CONC 35.6 g/dL (32.0-36.0); Mean Corpuscular Hemoglobin 31.2 pg (27.0-31.0); Mean Corpuscular Volume 87.7 fL (78.0-98.0); Mean Platelet Volume 7.5 fL (7.4-10.4); Platelet Count 228 thou/uL (130-400); RBC Distribution Width 13.3 % (11.5-14.5); Red Blood Cell (RBC) Count 4.58 mill/uL (4.20-5.40); White Blood Cell (WBC) Count 11.1 thou/uL (4.8-10.8)
--- NOTE | 2018-11-01 21:14 | CT ---
ABDOMEN AND PELVIC CT WITHOUT CONTRAST: History: Hematuria this morning. Pain. Comparison: None. FINDINGS: ABDOMEN CT: Patchy ground glass opacity in the lung bases may be due to edema. Heart is enlarged. There are pulmo nary calcifications. There is calcification of the mitral anulus. Atherosclerosis of a non-aneurysmal aorta. Limited evaluation of the solid organs due to lack of IV contrast administration. Grossly, no solid o rgan abnormality. No gastrohepatic, retrocrural or periportal lymphadenopathy. There are two separate hypodensities from the right renal cortex, with attenuation coefficient compat ible with cysts. Cyst from the upper pole of the right kidney measures 2.5 x 2.7 cm. Cyst from the mi d to lower pole of the right kidney measures 2.3 x 2.5 cm. Bilaterally, no hydronephrosis, nephrolith iasis, or perinephric fat stranding. Bilateral ureters have a normal caliber. No hydroureter, periure teral fat stranding or ureterolithiasis. No mesenteric mass, lymphadenopathy, free air or free fluid. Limited evaluation of the alimentary canal with lack of oral contrast. No evidence of small bowel dil atation. No evidence of small bowel obstruction. Ileothecal junction is normal. Normal caliber append ix is difficult to appreciate from the thecal apex. Nevertheless, no inflammation. Scattered fecal ma terial in a nondistended, nondilated colon. Diverticulosis, without evidence of diverticulitis. Mucos al thickening of the sigmoid colon likely due to inadequate distention. CT PELVIS: Hysterectomy changes. No pelvic mass, lymphadenopathy, free air or free fluid. Nonenlarged left exter nal iliac lymph node. Unremarkable urinary bladder. OSSEOUS STRUCTURES: Multilevel vacuum disc phenomenon. No lytic or blastic lesions. There is vacuum joint phenomenon in b ilateral sacroiliac joints. IMPRESSION: 1. Right renal cyst. 2. No evidence of obstructive uropathy in either kidney. 3. Diverticulosis, without evidence of diverticulitis. Mucosal thickening of the sigmoid colon may be due to inadequate distention. Colonoscopy should be performed if there is concern for underlying concepcion plastic process. POS: PPP
== END 2018-11-01 21:15 | disposition home or self-care (01) ==
LOC: SCSER 19:38
DX: N30.91 Cystitis, unspecified with hematuria (principal); I10 Essential (primary) hypertension; E78.00 Pure hypercholesterolemia, unspecified; Z79.899 Other long term (current) drug therapy; Z79.82 Long term (current) use of aspirin; Z79.01 Long term (current) use of anticoagulants
CPT/HCPCS: 74176; 81003; 81015; 85025

== ENCOUNTER 2019-01-17 17:59 | Emergency (ER) | payer MEDICARE, BC ==
[2019-01-17 18:57] LABS: #Basophils 0.1 thou/uL (0.0-0.2); #Lymphocytes 1.2 thou/uL (1.20-3.40); #Monocytes 0.8 thou/uL (0.11-0.59); #Neutrophils 10.1 thou/uL (1.40-6.50); %Basophils 0.5 % (0.0-1.0); %Eosinophils 0.1 % (0.0-10.0); %Lymphocytes 9.6 % (21.0-51.0); %Monocytes 6.2 % (0.0-10.0); %Neutrophils 83.6 % (42.0-75.0); Hemoglobin 13.8 g/dL (12.0-16.0); Mean Corpuscular HGB CONC 35.3 g/dL (32.0-36.0); Mean Corpuscular Hemoglobin 30.6 pg (27.0-31.0); Mean Corpuscular Volume 86.6 fL (78.0-98.0); Mean Platelet Volume 8.5 fL (7.4-10.4); Platelet Count 189 thou/uL (130-400); RBC Distribution Width 12.6 % (11.5-14.5); White Blood Cell (WBC) Count 12.1 thou/uL (4.8-10.8)
[2019-01-17 19:10] LABS: ALT (SGPT) 15 U/L (8-55); AST (SGOT) 19 U/L (5-34); Albumin 4.2 g/dL (3.4-4.8); Alkaline Phosphatase 99 U/L (40-110); Anion Gap 17 mmol/L (10-20); BUN (Urea Nitrogen) 12 mg/dL (9.8-20.1); Bilirubin, Total 0.8 mg/dL (0.2-1.2); Calc. Creatinine Clearance 0 mL/min (70-130); Calcium 9.7 mg/dL (7.8-10.44); Carbon Dioxide 32 mmol/L (23-31); Chloride 84 mmol/L (98-107); Estimated GFR-MDRD 70; Globulin 2.7 g/dL (2.4-3.5); Glucose 135 mg/dL (83-110); Protein, Total 6.9 g/dL (6.0-8.3); Sodium 130 mmol/L (136-145)
[2019-01-17 19:13] LABS: Potassium 2.7 mmol/L (3.5-5.1)
[2019-01-17 19:31] LABS: CKMB 1.2 ng/mL (0-6.6)
[2019-01-17] MEDS ORDERED: Aspirin Chewable 81 MG TAB ONE (19:35)
[2019-01-17] MEDS ORDERED: Potassium Chloride 20 MEQ TAB ONE (19:35)
--- NOTE | 2019-01-17 19:49 | RAD ---
EXAM: Single view of the chest HISTORY: Chest pain COMPARISON: 02/26/2018 FINDINGS: Single view of the chest shows a normal sized cardiomediastinal silhouette. There is no saurabh dence of consolidation, mass, or pleural effusion. Degenerative changes are seen in the spine and the left shoulder. IMPRESSION: No evidence of acute cardiopulmonary disease
[2019-01-17 20:20] LABS: Bilirubin Negative (Negative); Blood, Urine Large (Negative); Clarity Hazy (Clear); Glucose, Urine (Dipstick) Negative (Negative); Leukocyte Moderate (Negative); Nitrite Positive (Negative); Protein, Urine (Dipstick) Trace mg/dL (Neg-Trace)
[2019-01-17 20:22] LABS: Bacteria/HPF 2+ HPF (None Seen)
[2019-01-17] MEDS ORDERED: cefTRIAXone\\ROCEPHIN 1 GM VIAL ONE (21:34)
== END 2019-01-17 21:32 | disposition short-term general hospital (02) ==
LOC: SCSER 17:59
DX: E87.1 Hypo-osmolality and hyponatremia (principal); E87.6 Hypokalemia; R79.89 Other specified abnormal findings of blood chemistry; N39.0 Urinary tract infection, site not specified; Z79.82 Long term (current) use of aspirin; Z79.899 Other long term (current) drug therapy; Z79.01 Long term (current) use of anticoagulants; I10 Essential (primary) hypertension; E78.00 Pure hypercholesterolemia, unspecified; I48.91 Unspecified atrial fibrillation
CPT/HCPCS: 71045; 80053; 81003; 81015; 82553; 83605; 83735; 84484; 85025; 87077; 87086; 87186; 93005; 96374; J0696